=== PATIENT | male | born 1990 | race Caucasian/White ===

== ENCOUNTER 2023-10-30 19:13 | Emergency (ER) | payer OTHER ==
[~2023-10-30] VITALS: Ht 182.9 cm; Wt 75.7 kg
[2023-10-30] MEDS ORDERED: ACETAMINOPHEN 500 MG TABLET ONE (19:34)
[2023-10-30] MEDS ORDERED: NAPROXEN 500 MG TABLET ONE (19:34)
[2023-10-30] MEDS: NAPROXEN 500 MG TABLET PO ONE (19:37)
[2023-10-30] MEDS: ACETAMINOPHEN 500 MG TABLET PO ONE (19:37)
[2023-10-30 21:28] VITALS: BP 121/75; TEMP 98.6; O2SAT 99
== END 2023-10-30 21:29 | disposition home or self-care (01) ==
LOC: ER 19:13
DX: S52.592A Other fractures of lower end of left radius, initial encounter for closed fracture (principal); F17.200 Nicotine dependence, unspecified, uncomplicated; Z98.890 Other specified postprocedural states; Z60.2 Problems related to living alone; S52.612A Displaced fracture of left ulna styloid process, initial encounter for closed fracture; W17.89XA Other fall from one level to another, initial encounter; Y93.89 Activity, other specified; Y92.89 Other specified places as the place of occurrence of the external cause; Y99.8 Other external cause status
CPT/HCPCS: 73110; 73130; A4606; A4663; A9150